=== PATIENT | female | born 1965 | race American Indian/Alaskan Native ===

== ENCOUNTER 2017-01-28 20:18 | Emergency (ER) | payer OTHER ==
[2017-01-28] MEDS ORDERED: ULTRAM ONE (20:59)
[2017-01-28] MEDS ORDERED: ULTRAM PO ONE (21:02)
[2017-01-29] MEDS ORDERED: DILAUDID IM ONE (02:26)
[2017-01-29] MEDS ORDERED: DECADRON IM ONE (02:26)
[2017-01-29] MEDS ORDERED: VALIUM PO ONE (02:26)
[2017-01-29] MEDS ORDERED: ZOFRAN ODT PO ONE (02:26)
--- NOTE | 2017-01-29 02:26 | Emergency Department Report ---
Upper Extremity - HPI Chief Complaint: Extremity Injury, Upper Stated Complaint: SHOULDER PAIN IN BOTH SHOULDERS Time Seen by Provider: 01/29/17 01:12 Upper Extremity: Left Shoulder (patient here complaining of bilateral shoulder pain 1 year. Patient reported that pain has increased over the last couple days and she is taking Diclofenac which is not helping. She reports that she has a rotator cuff injury and she supposed to have surgery but has not scheduled surgery at. Reports pain is 6 out of 10 throbbing and aching.), Right Shoulder Occurred When: >5 Days (chronic shoulder pain 1 year that's worsening over the last 2 days) Mechanism: Other (rotator cuff injuries) Severity: moderate (6-10) Symptoms: Yes Pain with Movement (both shoulders), Yes Limited Range of Movement (both shoulders), No Deformity, No Numbness, No Weakness, No Swelling, No Bruising/Ecchymosis, No Laceration or Abrasion Other History: Patient he report that she has chronic shoulder pain to both her shoulder from rotator cuff injury. She says she has orthopedic doctor and she was placed on diclofenac but it's not helping her over the last couple days her pain has increased. She has she has had MRI and she is supposed to have rotator cuff surgery but it is not scheduled yet. Pain is aching and throbbing in and 6 out of 10. Denies any radiation of pain. Denies any chest pain or shortness of breath. Patient with a blood pressure of 194/120 and she H repeat this to her being out of her lisinopril for high blood pressure 1 month coupled with her pain. Patient says she takes lisinopril 40 mg once a day but she has not taken it for one month. She denies any fever or chills. Denies any new injury to her shoulders. Denies any headache, dizziness or blurred vision. ED Review of Systems ROS: Stated complaint: SHOULDER PAIN IN BOTH SHOULDERS Other details as noted in HPI Comment: All other systems reviewed and negative Constitutional: no symptoms reported Respiratory: no symptoms reported Cardiovascular: denies: chest pain, palpitations, edema, syncope Gastrointestinal: denies: abdominal pain, nausea, vomiting Musculoskeletal: arthralgia. denies: back pain, joint swelling, myalgia Skin: denies: rash Neurological: denies: headache, weakness, numbness, paresthesias, confusion, abnormal gait, vertigo ED Past Medical Hx - Past Medical History Previous Medical History?: Yes Hx Hypertension: Yes Additional medical history: Shoulder Pain x 1 year - Surgical History Past Surgical History?: Yes Additional Surgical History: Hyst - Family History Family history: hypertension - Social History Smoking Status: Never Smoker Substance Use Type: None Other Social History: single - Medications Home Medications: Home Medications Medication Instructions Recorded Confirmed Last Taken Type Diclofenac Sodium 75 mg PO BID 01/28/17 01/28/17 Unknown History Lisinopril [Zestril] 40 mg PO 01/28/17 Unknown History Lisinopril [Zestril] 40 mg PO QDAY #30 tablet 01/29/17 Unknown Rx Upper Extremity Exam - Exam General: Vital signs noted. No distress. Alert and acting appropriately. This is a 51-year-old female well-nourished well-developed in no acute distress. Head and Torso: No HEENT Abnormality (normal exam), No Neck Tenderness (full range of motion, no C-spine tenderness, supple), No Chest/Lungs Abnormality ( clear to auscultation bilaterally, no rhonchi wheezes or rales. No motor or Reason), No Abdominal Tenderness (soft, nontender to palpate in all quadrants. Normal bowel sounds in all quadrants), No Back Tenderness (no vertebral or paraspinal tenderness. Full range of motion with normal inspection) Shoulder Exam: Yes Shoulder Tenderness (tender to palpate to the joints bilaterally right greater than left.), No Clavicle Tenderness, No Normal Range of Motion in Shoulder (patient with limited range of motion to both shoulder right greater than left the case she said she is in a lot of pain.), No Shoulder Deformity (no joints swelling and, crepitus or deformity noted. No redness or variation in temperature noted), No AC Joint Tenderness Arm Exam: No Arm/Humerus Tenderness, No Arm Deformity Elbow: Yes Normal Range of Motion in Elbow, No Elbow Tenderness, No Elbow Deformity Forearm: No Forearm Tenderness, No Forearm Deformity, No Pain with Pronation, No Pain with Supination Wrist: Yes Normal ROM in Wrist, No Wrist Tenderness, No Wrist Deformity, No Snuffbox Tenderness, No Pain with Axial Thumb Compression Hand: Yes Normal ROM in Digit(s), No Hand Tenderness, No Hand Deformity, No Digit Tenderness, No Digit(s) Deformity, No Tendon Dysfunction CMS Exam: Yes Normal Distal Pulses, Yes Normal Capillary Refill, Yes Normal Distal Sensation, No Broken Skin ED Course Vital Signs 01/28/17 21:02 Temperature 98.5 F Pulse Rate 93 H Respiratory 20 Rate Blood Pressure 194/120 [Right] O2 Sat by Pulse 99 Oximetry Vital Signs 01/28/17 01/29/17 21:02 04:19 Temperature 98.5 F Pulse Rate 93 H 75 Respiratory 20 18 Rate Blood Pressure 194/120 151/97 [Right] O2 Sat by Pulse 99 98 Oximetry - Reevaluation(s) Reevaluation #1: 01/29/17 04:32 Patient given Dilaudid 1 mg IM, Zofran 4 mg ODT, Valium 10 mg by mouth, Decadron 10 mg IM for shoulder pain and to prevent nausea. She was given lisinopril 40 mg by mouth and clonidine 0.1 mg by mouth for elevated blood pressure. Her blood pressure is stable and she said her pain is down to 1 out of 10. 01/29/17 04:33 ED Medical Decision Making - Medical Decision Making ED course: Patient with chronic shoulder pain and on diclofenac from her doctor which she says has not been helping over the last 2 days. She reports that she has rotator cuff injury and is supposed to be scheduling surgery. She reports that she has orthopedic doctor. Patient said the pain is too much for her to bear. She is also with elevated blood pressure and said that she's been out of her blood pressure medication which is lisinopril 40 mg once a day and she hasn' t taken it for months because she's been out of it. Patient given Dilaudid 1 mg IM, Zofran 4 mg ODT, Valium 10 mg by mouth, Decadron 10 mg IM for shoulder pain and to prevent nausea. She was given lisinopril 40 mg by mouth and clonidine 0.1 mg by mouth for elevated blood pressure. Patient was also given Ultram 50 mg in triage area for shoulder pain. Her blood pressure is stable and she said her pain is down to 1 out of 10. I discussed the patient that she'll need to follow up with her orthopedic doctor and also need to keep a log of her blood pressure and follow up with her primary care physician regarding blood pressure. She will be sent home on refill for her blood pressure medication and to follow up with her orthopedic doctor for pain management. She was understanding of diagnosis and treatment plan. Assessment/plan 1. Arthralgia bilateral shoulder 2. Chronic shoulder pain 3. Elevated blood pressure with history of high blood pressure 4. Noncompliance of medication Patient referred to Dr. Justice orthopedic doctor for management of her chronic shoulder pain or to follow-up with her own orthopedic doctor. Patient said that she has a primary care physician so I told her that she needs to follow up with her primary care physician for management of her pressure and she needs to call and Tuesday to schedule an appointment and in the meantime keep a log of her blood pressure and take to primary care visit with her. Patient discharged home with her friend in stable condition. Critical care attestation.: If time is entered above; I have spent that time in minutes in the direct care of this critically ill patient, excluding procedure time. ED Disposition Clinical Impression: Elevated blood pressure reading in office with diagnosis of hypertension, Noncompliance with medications Arthralgia of shoulder Qualifiers: Laterality: bilateral Qualified Code(s): M25.511 - Pain in right shoulder; M25.512 - Pain in left shoulder Chronic shoulder pain Qualifiers: Laterality: bilateral Qualified Code(s): M25.512 - Pain in left shoulder; M25.511 - Pain in right shoulder; G89.29 - Other chronic pain Disposition: DC-01 TO HOME OR SELFCARE Is pt being admited?: No Does the pt Need Aspirin: No Condition: Stable Instructions: Hypertension (ED), Arthralgia (ED), Rotator Cuff Injury (ED) Additional Instructions: please follow-up with orthopedic referral or your own orthopedist Please take your blood pressure medication as prescribed. Please call your primary care physician and schedule an appointment for follow- up visit and management of elevated blood pressure Keep a log of your blood pressure and take to primary care visit with you Prescriptions: Lisinopril [Zestril] 40 mg PO QDAY #30 tablet Referrals: ISMA LOMBARDI MD [Primary Care Provider] - 3-5 Days SUDHEER JUSTICE MD [Staff Physician] - 3-5 Days Forms: Accompanied Note, Work/School Release Form(ED)
[2017-01-29] MEDS ORDERED: ZESTRIL PO ONE (02:28)
[2017-01-29] MEDS ORDERED: CATAPRES PO ONE (02:28)
[2017-01-29 04:19] VITALS: BP 151/97
== END 2017-01-29 04:47 | disposition home or self-care (01) ==
LOC: ED 20:18
DX: I10 Essential (primary) hypertension (principal); M25.512 Pain in left shoulder; M25.511 Pain in right shoulder; G89.29 Other chronic pain
CPT/HCPCS: 96372; 99282; J1100; J1170; Q0162

== ENCOUNTER 2020-05-14 08:42 | Outpatient (CLI) | payer OTHER ==
--- NOTE | 2020-05-14 11:02 | Mammography Report ---
BILATERAL DIGITAL DIAGNOSTIC MAMMOGRAM WITH CAD , 05/14/2020 BILATERAL LIMITED BREAST ULTRASOUND CLINICAL INFORMATION / INDICATION: The patient reports a focal lump in the right breast and focal perla n in the left breast for 2 weeks. TECHNIQUE: Digital bilateral mammographic imaging was performed. Spot compression views were obtained . Limited ultrasound was performed. This examination was interpreted with the benefit of Computer-Aid ed Detection (CAD) analysis. COMPARISON: Screening mammogram, 02/27/2018 FINDINGS: Breast Density: The breasts are heterogeneously dense, which may obscure small masses. MAMMOGRAPHIC FINDINGS: No dominant mass, suspicious calcifications, or architectural distortion in ei ther breast. Specifically, there is no focal mammographic abnormality to correspond to the patient's area of palpable concern in the upper outer right breast. There is no focal abnormality to account fo r the patient's report of left breast pain. Bilateral prepectoral saline implants are present. ULTRASOUND FINDINGS: Targeted ultrasound evaluation was performed of the area of interest. Right breast: Sonographic evaluation of the right breast 10:00 position 12 cm from the nipple in the patient's area of palpable concern demonstrates a subtle hypoechoic masslike area measuring 0.7 x 0.7 cm. There is no associated vascularity. Left breast: Sonographic evaluation of the patient's area of pain at the 2:00 position in the axillar y tail demonstrates no focal sonographic abnormality. There is no evidence of suspicious solid mass o r shadowing. IMPRESSION: 1. The patient's area of palpable concern appears to correspond to a subtle hypoechoic masslike area at the 10:00 position in the right breast. It is difficult to determine if this represents a true mas s or focal fibrocystic tissue. Because the patient reports this is palpable, surgical consultation an d ultrasound-guided biopsy are recommended. 2. No focal mammographic or sonographic abnormality to account for the patient's left breast pain. Th erefore, clinical correlation is recommended. Follow up recommendation: Biopsy BI-RADS Category 4: Suspicious for Malignancy. A "normal" or negative report should not discourage follow up or biopsy of a clinically significant f inding. A written summary of these findings will be mailed to the patient. The patient will be entered into a mammography reporting system which will generate a reminder letter for the patient's next appointmen t at the appropriate interval. According to the [employer], yearly mammograms are recommended starting at age 40 and continuing as long as a woman is in good health. Breast MRI is recommended for women with an dandre roximately 20-25% or greater lifetime risk of breast cancer, including women with a strong family his tory of breast or ovarian cancer and women who have been treated for Hodgkin's disease. Signer Name: Luz Cohn MD Signed: 05/14/2020 10:58 AM Workstation Name: [email or web address]
== END 2020-05-14 08:43 | disposition home or self-care (01) ==
LOC: MAMMO 08:42
PROVIDERS: ATTEND Internal Medicine
DX: R92.8 Other abnormal and inconclusive findings on diagnostic imaging of breast (principal)
CPT/HCPCS: 77066

== ENCOUNTER 2020-06-10 09:33 | Outpatient (CLI) | payer OTHER ==
--- NOTE | 2020-06-10 16:47 | Ultrasound Report ---
ULTRASOUND BREAST RIGHT LIMITED, 06/10/2020 CLINICAL INFORMATION / INDICATION: Palpable abnormalities, worrisome area seen on recent right breast ultrasound, planned ultrasound-guided biopsy TECHNIQUE: Targeted ultrasound evaluation was performed of the area of interest. COMPARISON: Right breast ultrasound 05/14/2020 FINDINGS: Examination was performed both by the technologist in my presence and by me personally with careful a ttention to the area in question at 10:00, roughly 12 to 15 cm from the nipple. The patient localized the area of palpable concern on several occasions with direct scanning in that area. Fibrocystic rikki nges are seen in this area with no worrisome abnormality noted. The area of subtle hypoechogenicity s een on recent ultrasound is not demonstrated. No suspicious target for ultrasound-guided biopsy is se en. IMPRESSION: No suspicious abnormalities are seen in the area in question Follow up recommendation: Clinical follow-up is suggested. If this continues to be of concern, MR collier ht be considered. Otherwise I would suggest 6 month right breast ultrasound follow-up. BI-RADS Category 1: Negative. A normal or "negative" report should not preclude biopsy or follow-up of a clinically suspicious find ing. Signer Name: Hood Marquis MD Signed: 06/10/2020 4:42 PM Workstation Name: [id number]
== END 2020-06-10 09:34 | disposition home or self-care (01) ==
LOC: US 09:33
PROVIDERS: ATTEND Surgery
DX: N60.11 Diffuse cystic mastopathy of right breast (principal); R92.2 Inconclusive mammogram

== ENCOUNTER 2020-07-09 09:03 | Outpatient (CLI) | payer OTHER ==
--- NOTE | 2020-07-09 11:17 | Magnetic Resonance Report ---
MRI BREAST BILATERAL WITH AND WITHOUT CONTRAST, 07/09/2020 CLINICAL INFORMATION / INDICATION: Bilateral breast pain, palpable abnormalities in right breast with out mammographic or sonographic correlates. TECHNIQUE: Axial T1 and T2-weighted fat sat images were obtained precontrast. Gadolinium-based contra st was injected intravenously and serial axial T1 weighted images with fat saturation were obtained. 3-D MIP projections, kinetic analysis, and subtraction imaging were utilized to evaluate. A dedicated 8-channel breast coil was used for image acquisition. COMPARISON: 06/10/2020, 05/14/2020 FINDINGS: BREAST DENSITY: Heterogeneously dense. BACKGROUND ENHANCEMENT: Low level background enhancement within both breasts. RIGHT BREAST: No dominant mass or suspicious area of enhancement in the right breast. A prepectoral s zach implant is intact. LEFT BREAST: No dominant mass or suspicious area of enhancement in the left breast. A prepectoral kezia ine implant is intact. AXILLAE: No pathologically enlarged axillary lymph nodes. ADDITIONAL FINDINGS: Subcentimeter liver cysts are noted without other significant abnormalities seen on limited imaging of the chest and upper abdomen. IMPRESSION: 1. No MRI evidence of malignancy. 2. Intact breast implants. Follow up recommendation: Routine yearly BI-RADS Category 2: Benign. Signer Name: Francesco Jaeger MD Signed: 07/09/2020 11:13 AM Workstation Name: [id number]
== END 2020-07-09 09:04 | disposition home or self-care (01) ==
LOC: SPVIMAG 09:03
PROVIDERS: ATTEND Surgery
DX: R92.8 Other abnormal and inconclusive findings on diagnostic imaging of breast (principal); K76.89 Other specified diseases of liver; Z80.3 Family history of malignant neoplasm of breast
CPT/HCPCS: A9577; C8908; 77049